=== PATIENT | female | born 1940 | race Two or more races ===

== ENCOUNTER 2019-05-26 15:29 | Outpatient (CLI) | payer MEDICARE, OTHER ==
[~2019-05-26 15:29] MED LIST: FERRIC CARBOXYMALTOSE 750 MG in NORMAL SALINE 250 ML IV PRN
[2019-05-26 16:17] VITALS: BP 178/64
== END 2019-05-26 17:05 | disposition home or self-care (01) ==
LOC: II 15:29 → 5TH 15:41 → II 17:05
PROVIDERS: ATTEND Internal Medicine Nephrology
PROC: 3E033GC Introduction of Other Therapeutic Substance into Peripheral Vein, Percutaneous Approach (ICD-10-PCS; principal; 2019-05-26)
DX: D50.9 Iron deficiency anemia, unspecified (principal)
CPT/HCPCS: 96365; J7050; J1439

== ENCOUNTER 2019-06-02 15:23 | Outpatient (CLI) | payer MEDICARE ==
[~2019-06-02 15:23] MED LIST changes: +FERRIC CARBOXYMALTOSE 750 MG in NORMAL SALINE 100 ML IV PRN
[2019-06-02 15:42] VITALS: BP 149/61
== END 2019-06-02 16:11 | disposition home or self-care (01) ==
LOC: II 15:23 → 5TH 15:26 → II 16:11
PROVIDERS: ATTEND Internal Medicine Nephrology
PROC: 3E033GC Introduction of Other Therapeutic Substance into Peripheral Vein, Percutaneous Approach (ICD-10-PCS; principal; 2019-06-02)
DX: D50.8 Other iron deficiency anemias (principal)
CPT/HCPCS: 96365; J7050; J1439